=== PATIENT | female | born 1950 | race Caucasian/White ===

== ENCOUNTER → 2020-10-13 11:12 | Outpatient (BNVA) | payer MEDICARE, BC, SELFPAY | PROVIDERS: PCP Family Medicine; Referring Provider Family Medicine; Visit Provider Specialist | DX: G61.81 Chronic inflammatory demyelinating polyneuritis (principal); Z87.891 Personal history of nicotine dependence | CPT/HCPCS: 99205; G2212 ==

== ENCOUNTER → 2020-12-26 14:49 | Outpatient (BNVA) | payer MEDICARE, BC, SELFPAY | PROVIDERS: PCP Family Medicine; Visit Provider Specialist | DX: G61.81 Chronic inflammatory demyelinating polyneuritis (principal); Z87.891 Personal history of nicotine dependence | CPT/HCPCS: 99215 ==

== ENCOUNTER → 2021-01-16 14:58 | Outpatient (BNVA) | payer MEDICARE, BC, SELFPAY | PROVIDERS: PCP Family Medicine; Visit Provider Specialist | DX: G61.81 Chronic inflammatory demyelinating polyneuritis (principal); R20.0 Anesthesia of skin; R20.2 Paresthesia of skin; Z87.891 Personal history of nicotine dependence | CPT/HCPCS: 95913 ==

== ENCOUNTER → 2021-02-06 13:01 | Outpatient (BNVA) | payer MEDICARE, BC, SELFPAY | PROVIDERS: PCP Family Medicine; Visit Provider Specialist | DX: G61.81 Chronic inflammatory demyelinating polyneuritis (principal); F17.200 Nicotine dependence, unspecified, uncomplicated | CPT/HCPCS: 99214 ==

== ENCOUNTER → 2021-04-18 15:51 | Outpatient (BNVA) | payer MEDICARE, BC, SELFPAY | PROVIDERS: PCP Family Medicine; Visit Provider Specialist | DX: G61.81 Chronic inflammatory demyelinating polyneuritis (principal); F17.200 Nicotine dependence, unspecified, uncomplicated | CPT/HCPCS: 99214 ==

== ENCOUNTER → 2021-08-16 09:54 | Outpatient (BNVA) | payer MEDICARE, BC, SELFPAY | PROVIDERS: PCP Family Medicine; Visit Provider Specialist | DX: G61.81 Chronic inflammatory demyelinating polyneuritis (principal); D64.9 Anemia, unspecified; F17.200 Nicotine dependence, unspecified, uncomplicated | CPT/HCPCS: 80048; 82607; 82728; 83540; 83550; 83921; 99214 ==

== ENCOUNTER 2021-08-16 11:32 | Outpatient (CLI) | payer MEDICARE, BC, SELFPAY ==
[2021-08-16 12:35] LABS: Anion Gap 18.3 (5-19); Blood Urea Nitrogen 15 mg/dL (8-23); Calcium 10.5 mg/dL (8.5-10.5); Carbon Dioxide 24 mmol/L (22-29); Chloride 99 mmol/L (98-107); Ferritin 227 ng/mL (15-150); Glucose 91 mg/dL (65-115); Iron 95 ug/dL (37-145); Osmolality Calculated 284 mOsm/kg (285-295); Percent Saturation 29.1 % (20-50); Potassium 4.3 mmol/L (3.5-5.1); Sodium 137 mmol/L (136-145); Total Iron Binding Capacity 326 mcg/dl; Unsaturated Iron Binding 231 ug/dL (112-347)
[2021-08-16 12:50] LABS: Vitamin B12 1038 pg/mL (232-1245)
[2021-08-22 10:48] LABS: Methylmalonic Acid 172 nmol/L (87-318)
== END 2021-08-16 11:33 | disposition home or self-care (01) ==
LOC: LAB 11:39
PROVIDERS: PCP Family Medicine; Visit Provider Specialist
DX: D64.9 Anemia, unspecified (principal)
CPT/HCPCS: 80048; 82607; 82728; 83540; 83550; 83921

== ENCOUNTER → 2021-12-22 13:02 | Outpatient (BNVA) | payer MEDICARE, BC, SELFPAY | PROVIDERS: PCP Family Medicine; Visit Provider Specialist | DX: G61.81 Chronic inflammatory demyelinating polyneuritis (principal) | CPT/HCPCS: 99214 ==

== ENCOUNTER → 2022-05-29 13:00 | Outpatient (BNVA) | payer MEDICARE, BC, SELFPAY | PROVIDERS: PCP Family Medicine; Visit Provider Specialist | DX: G61.81 Chronic inflammatory demyelinating polyneuritis (principal) | CPT/HCPCS: 99214 ==

== ENCOUNTER → 2022-07-24 14:31 | Outpatient (BNVA) | payer MEDICARE, BC, SELFPAY | PROVIDERS: PCP Family Medicine; Referring Provider Specialist; Visit Provider Specialist | DX: G61.81 Chronic inflammatory demyelinating polyneuritis (principal) | CPT/HCPCS: 99214 ==

== ENCOUNTER → 2023-01-09 14:09 | Outpatient (BNVA) | payer MEDICARE, BC, SELFPAY | PROVIDERS: PCP Family Medicine; Visit Provider Specialist | DX: G61.81 Chronic inflammatory demyelinating polyneuritis; Z79.899 Other long term (current) drug therapy | CPT/HCPCS: 99214 ==

== ENCOUNTER → 2023-06-19 11:57 | Outpatient (BNVA) | payer MEDICARE, BC, SELFPAY | PROVIDERS: PCP Family Medicine; Visit Provider Specialist | DX: R29.90 Unspecified symptoms and signs involving the nervous system (principal); G61.81 Chronic inflammatory demyelinating polyneuritis; R20.0 Anesthesia of skin; R20.2 Paresthesia of skin | CPT/HCPCS: 99214 ==

== ENCOUNTER → 2024-01-07 11:52 | Outpatient (BNVA) | payer MEDICARE, BC, SELFPAY | PROVIDERS: PCP Family Medicine; Visit Provider Specialist | DX: G61.81 Chronic inflammatory demyelinating polyneuritis (principal); R20.0 Anesthesia of skin; R20.2 Paresthesia of skin; R29.90 Unspecified symptoms and signs involving the nervous system | CPT/HCPCS: 99215 ==